=== PATIENT | male | born 1955 | race Caucasian/White ===

== ENCOUNTER 2019-03-12 05:40 | Inpatient (IN) | payer BC ==
[~2019-03-12] VITALS: Ht 182.9 cm; Wt 104.3 kg
[2019-03-12] MEDS ORDERED: ALVIMOPAN 12 MG CAPSULE PO ONE (06:00)
[2019-03-12] MEDS ORDERED: cefOXitin SODIUM 2 GM in D5W 100 ML IV ONE (07:30)
[2019-03-12] MEDS ORDERED: BUPIVACAINE LIPOSOME/PF 266 MG/20 ML VIAL INFIL ONE (07:32)
[2019-03-12] MEDS ORDERED: LOVA20TA2 PO (07:37)
[2019-03-12] MEDS ORDERED: NOR10 PO (07:37)
[2019-03-12] MEDS ORDERED: LR 1,000 ML IV SCH (08:43)
[2019-03-12] MEDS ORDERED: HYDROmorphone 2 MG/ML VIAL IVP PRN (08:45)
[2019-03-12] MEDS ORDERED: HYDROmorphone 1 MG INJ. 1 MG/ML AMPUL IVP PRN ×3 (08:45→10:30)
[2019-03-12] MEDS ORDERED: METOCLOPRAMIDE HCL 10 MG/2 ML VIAL IVP PRN (08:45)
[2019-03-12] MEDS ORDERED: ONDANSETRON HCL 4 MG/2 ML VIAL IVP PRN (10:30)
[2019-03-12] MEDS ORDERED: ACETAMINOPHEN 325 MG TABLET PO PRN (10:30)
[2019-03-12] MEDS ORDERED: HYDROcodone/ACETAMIN 5-325 MG TAB (NORCO/ VICODIN) PO PRN (10:30)
[2019-03-12 10:51] LABS: HEMATOCRIT 42.9 % (36-54); HEMOGLOBIN 14.8 g/dL (14.0-18.0)
[2019-03-12] MEDS ORDERED: HYDROmorphone 1 MG INJ. 1 MG/ML AMPUL ONE ×3 (10:51→11:43)
[2019-03-12 11:01] LABS: CALCIUM 8.1 mg/dL (8.4-11.0); CREATININE 1.37 mg/dL (0.55-1.30); POTASSIUM 3.8 mmol/L (3.5-5.1)
--- NOTE | 2019-03-12 11:45 | NUR ---
ADMISSION: The patient, WILLY GOODWIN, 64 y/o, M admitted by TOOÑ DURBIN MD, was given written information regarding hospital policies, unit procedures and contact persons.
--- NOTE | 2019-03-12 11:50 | NUR ---
OPENING NOTE patient is resting in bed, alert and oriented, abdominal binder on, darling in place, on 3L nasal cannula, educated surgical product sales consultant light system and plan of care, patient verbalized understanding, no signs of distress at this time, IV fluids running, fall/safety precautions in place.
[2019-03-12 12:10] VITALS: BP_SYST 120
[2019-03-12] MEDS: D5/0.45 NS 1,000 ML IV SCH (12:10)
[2019-03-12] MEDS: HYDROcodone/ACETAMIN 5-325 MG TAB (NORCO/ VICODIN) PO PRN ×3 (12:21→21:52)
--- NOTE | 2019-03-12 13:17 | NUR ---
CONSULTATION PAGED/CALLED Reason for Consultation: MEDICAL MANAGEMENT POST-OP Person Who was Notified: DAFNE Consulting Physician: Dissolver Operator Specialty: Ordering Physician:
--- NOTE | 2019-03-12 13:33 | NUR ---
rounds patient is resting in bed, patient stated pain has improved, no other needs at this time, IV fluids running, fall/safety precautions in place, no signs of distress at this time.
--- NOTE | 2019-03-12 15:15 | NUR ---
rounds patient resting in bed, family in the room, no signs of distress at this time, IV fluids running, no needs addressed at this time, fall/safety precautions in place.
[2019-03-12 16:45] VITALS: BP_SYST 115
--- NOTE | 2019-03-12 16:55 | NUR ---
prn pain medication patient resting in bed, educated on medication use and side effects, patient verbalized understanding, IV fluids running, no needs addressed at this time, fall/safety precautions in place.
--- NOTE | 2019-03-12 19:11 | NUR ---
closing note patient resting in bed, no signs of distress at this time, IV fluids running, no needs addressed at this time, fall/safety precautions in place, will endorse report to noc shift nurse to continue with care, patient can only have sips of water and ice chips, darling in place, abdominal binder on.
--- NOTE | 2019-03-12 19:15 | NUR ---
Late entry due to patient care; Patient was resting comfortably in bed. Patient's bed is in the lowest position with the bed alarm is activated. Patient has an abd dressing that is dry and intact and shows no signs of drainage or bleeding. Patient has active bowel sounds. Patient also has an abd binder on. Patient is on oxygen at 3L/min per NC, O2 saturation is 95%. Patient has a darling catheter to gravity drainage noted with clear yellowish urine. Patient was instructed to use IS 10x/hr while awake. Patient verbalized understanding and patient usage of IS was 1500ml. Patient has been instructed on nothing by mouth but can have ice chips and sips of water with medications. Patient has verbalized understanding. Patient has IV fluids D51/2NS at 100ml/hr in Right hand. IV site is intact with no signs of infiltration present. Fall and safety precautions are in place. Call light is with patient. No C/O pain or discomfort at this time.
[2019-03-12 20:00] VITALS: BP_SYST 121
[2019-03-12] MEDS: cefOXitin SODIUM 2 GM in D5W 100 ML IV SCH (21:49)
[2019-03-12] MEDS: ALVIMOPAN 12 MG CAPSULE PO SCH (21:50)
--- NOTE | 2019-03-12 21:52 | NUR ---
Patient complained of 6/10 incisional abd pain. Dressing remains dry and intact with abd binder in place. [place] 5/325mg 2 tablets given PO. Fall and safety precautions are in place. Call light is with patient and bed alarm is on. Patient was instructed to call for assistance as needed and patient verbalized understanding.
[2019-03-12] MEDS: FAMOTIDINE PF 20 MG/2 ML VIAL IVP SCH (21:53)
--- NOTE | 2019-03-13 | NUR ---
Pt is resting quietly in bed. Abdominal dressing dry and intact with abdominal binder in place. IVF is infusing well in RH. Call light is with pt and bed alarm is on.
[2019-03-13] MEDS: D5/0.45 NS 1,000 ML IV SCH ×3 (00:36→23:44)
[2019-03-13 00:56] VITALS: BP_SYST 114
--- NOTE | 2019-03-13 02:00 | NUR ---
Patient is sleeping with no s/s of distress. IV fluid is infusing well in . Fall and safety precautions are in place. Patient has call light, patient's bed is in the lowest and locked position. Bed alarm is on.
--- NOTE | 2019-03-13 04:00 | NUR ---
Patient is sleeping comfortably in bed. IV fluid is infusing well in RH. Fall and safety precautions are in place. Call light is with pt and bed alarm is on.
[2019-03-13] MEDS: HYDROcodone/ACETAMIN 5-325 MG TAB (NORCO/ VICODIN) PO PRN ×5 (05:09→21:07)
[2019-03-13 06:30] LABS: BASOPHILS % (AUTO) 0.4 % (0.0-2.0); EOSINOPHILS # (AUTO) 0.2 K/uL (0.0-0.4); EOSINOPHILS % (AUTO) 1.5 % (0.0-4.0); HEMATOCRIT 39.1 % (36-54); HEMOGLOBIN 13.3 g/dL (14.0-18.0); LYMPHOCYTES # (AUTO) 1.6 K/uL (1.0-5.5); LYMPHOCYTES % (AUTO) 16.1 % (20.5-51.5); MEAN CORPUSCULAR HEMOGLOBIN 32 pg (27-31); MEAN CORPUSCULAR HGB CONC 34 % (32-36); MEAN CORPUSCULAR VOLUME 95 fL (79.0-98.0); MONOCYTES # (AUTO) 1.3 K/uL (0.0-1.0); MONOCYTES % (AUTO) 13.1 % (1.7-9.3); NEUTROPHILS # (AUTO) 7.1 K/uL (1.8-7.7); NEUTROPHILS % (AUTO) 68.9 % (40.0-70.0); PLATELET COUNT (AUTO) 203 K/uL (130-430); RED BLOOD CELL COUNT(AUTO) 4.13 MIL/uL (4.2-6.2); RED CELL DISTRIBUTION WIDTH 13.1 % (9.0-15.0); WHITE BLOOD COUNT (AUTO) 10.2 K/uL (4.8-10.8)
[2019-03-13 06:34] LABS: ALANINE AMINOTRANSFERASE 23 U/L (12-78); ALBUMIN 3.2 g/dL (3.4-4.8); ASPARTATE AMINOTRANSFERASE 20 U/L (10-37); CALCIUM 8.1 mg/dL (8.4-11.0); CHLORIDE 101 mmol/L (98-107); CREATININE 1.19 mg/dL (0.55-1.30); GLUCOSE 102 mg/dL (70-99); POTASSIUM 3.5 mmol/L (3.5-5.1); SODIUM SERUM 135 mmol/L (136-145); TOTAL BILIRUBIN 0.7 mg/dL (0.0-1.0); UREA NITROGEN, BLOOD 8 mg/dL (8-21)
[2019-03-13 07:01] LABS: ANION GAP < 3 (5-15); GFR AFRICAN AMERICAN 80 mL/min (>90)
--- NOTE | 2019-03-13 07:52 | NUR ---
Initial notes: Patient sleeping. Stable. I.V. access patent. Call light within reach. Safety measures in placed. Report received from bedside.
[2019-03-13 07:55] VITALS: BP_SYST 123
[2019-03-13] MEDS: cefOXitin SODIUM 2 GM in D5W 100 ML IV SCH (08:18)
[2019-03-13] MEDS: ALVIMOPAN 12 MG CAPSULE PO SCH ×2 (08:23→20:38)
[2019-03-13] MEDS: FAMOTIDINE PF 20 MG/2 ML VIAL IVP SCH ×2 (08:24→20:41)
[2019-03-13] MEDS: ENOXAPARIN SODIUM 30 MG/0.3 ML SYRINGE SUBCUT SCH (08:25)
--- NOTE | 2019-03-13 09:27 | NUR ---
rounds: Patient resting on bed. No distress noted.
--- NOTE | 2019-03-13 09:53 | NUR ---
Nutrition Update Bogdan Scale 17 noted. Pt admitted for other specified diseases of intestine. Diet: NPO BMI: 31.2 kg/m2 RD to follow per nutrition care standards.
[2019-03-13] MEDS ORDERED: NS IRRIG SOLN 1000 ML IR ONE (10:30)
[2019-03-13] MEDS ORDERED: ROCURONIUM BROMIDE 10 MG/ML (ZEMURON) ONE (10:30)
[2019-03-13] MEDS ORDERED: fentaNYL CITRATE/PF 100 MCG/2 ML AMP ONE (10:30)
[2019-03-13] MEDS ORDERED: MIDAZOLAM HCL 5 MG/ML VIAL (VERSED) IV ONE (10:30)
[2019-03-13] MEDS ORDERED: LR 1,000 ML IV.SOLN IV ONE (10:30)
[2019-03-13] MEDS ORDERED: NEOSTIGMINE METHYLSULFATE 1 MG/ML, 10 ML VIAL ONE (10:30)
[2019-03-13] MEDS ORDERED: PROPOFOL 200MG/ 20ML VIAL (DIPRIVAN) IV ONE (10:30)
[2019-03-13] MEDS ORDERED: NS 1000 ML IV.SOLN IV ONE (10:30)
[2019-03-13] MEDS ORDERED: SEVOFLURANE 15 MIN GAS INH ONE (10:30)
[2019-03-13] MEDS ORDERED: SUCCINYLCHOLINE CHLORIDE 20 MG/ML(QUELICIN) ONE (10:30)
[2019-03-13] MEDS ORDERED: GLYCOPYRROLATE 0.2 MG/ML VIAL ONE (10:30)
[2019-03-13] MEDS ORDERED: NS 100 ML BAG ONE (10:30)
[2019-03-13] MEDS ORDERED: fentaNYL CITRATE 250 MCG/5 ML AMP ONE (10:30)
[2019-03-13] MEDS ORDERED: IPRATROPIUM BROM 0.5 MG/2.5 ML VIAL.NEB (ATROVENT) INH PRN (11:30)
[2019-03-13] MEDS: IPRATROPIUM BROM 0.5 MG/2.5 ML VIAL.NEB (ATROVENT) INH SCH ×4 (11:30→23:00)
[2019-03-13] MEDS ORDERED: ALBUTEROL SULFATE 0.083% 2.5 MG/3 ML VIAL.NEB INH PRN (11:30)
[2019-03-13] MEDS: ALBUTEROL SULFATE 0.083% 2.5 MG/3 ML VIAL.NEB INH SCH ×4 (11:30→23:00)
[2019-03-13] MEDS ORDERED: amLODIPine BESYLATE 10 MG TABLET PO ONE (11:45)
--- NOTE | 2019-03-13 12:00 | NUR ---
rounds: Patient sitting on the chair. no distress noted. at bedside.
[2019-03-13 12:26] VITALS: BP_SYST 127
--- NOTE | 2019-03-13 13:00 | NUR ---
Ambulate: Patient ambulates at the hallway with walker and assist. Tolerated well.
--- NOTE | 2019-03-13 14:04 | NUR ---
D/C FC: Removed darling cath as MD order. Inform patient to call us if he void.
--- NOTE | 2019-03-13 16:00 | NUR ---
voided: Patient voided 150cc of clear urine s/p darling cath removal.
[2019-03-13 16:53] VITALS: BP_SYST 130
[2019-03-13] MEDS ORDERED: ATORVASTATIN 10 MG TABLET PO SCH (18:00)
[2019-03-13] MEDS: METOCLOPRAMIDE HCL 10 MG/2 ML VIAL IVP SCH (18:48)
--- NOTE | 2019-03-13 18:55 | NUR ---
Closing notes: Patient resting on bed. Stable. Needs attended. Abd incision, dry clean and intact with abd binder. Call light within reach. Safety measures in placed. Report will be given to mini shifter.
--- NOTE | 2019-03-13 19:15 | NUR ---
Opening notes: Patient was resting comfortably in bed. Patient's bed is in the lowest position with the bed alarm activated. Patient has an abd dressing that is dry and intact and shows no signs of drainage or bleeding. Patient has active bowel sounds. Patient also has an abd binder on. Patient was instructed to use IS 10x/hr while awake. Patient verbalized understanding and patient usage of IS was 1500ml. Patient is on clear liquid diet. Patient has verbalized understanding. Patient has IV fluids D51/2NS at 100ml/hr in Right hand. IV site is intact with no signs of infiltration present. Fall and safety precautions are in place. Call light is with patient. No C/O pain or discomfort at this time.
[2019-03-13 20:00] VITALS: BP_SYST 125
--- NOTE | 2019-03-13 20:45 | NUR ---
Patient stated that he ambulated in the hallway and also stated that he had a bowel movement.
--- NOTE | 2019-03-13 21:07 | NUR ---
Patient C/o 6/10 pain in lower abd region. Patient was given [place] 5/325 2 tablets PO per his request. Abd dressing is intact with no bleeding noted. Fall and safety precautions are in place.
--- NOTE | 2019-03-13 23:50 | NUR ---
Patient ambulated to bathroom and back to bed with steady gait. IV fluid is infusing well in RH. Fall and safety precautions in place.
[2019-03-14 00:27] VITALS: BP_SYST 130
[2019-03-14] MEDS: ALBUTEROL SULFATE 0.083% 2.5 MG/3 ML VIAL.NEB INH SCH ×3 (03:00→11:00)
[2019-03-14] MEDS: IPRATROPIUM BROM 0.5 MG/2.5 ML VIAL.NEB (ATROVENT) INH SCH ×3 (03:00→11:00)
--- NOTE | 2019-03-14 04:20 | NUR ---
Patient is sleeping with no s/s of distress. IV fluid is infusing well in . Fall and safety precautions are in place. Patient has call light, patient's bed is in the lowest and locked position.
[2019-03-14] MEDS: METOCLOPRAMIDE HCL 10 MG/2 ML VIAL IVP SCH ×3 (05:42→11:44)
--- NOTE | 2019-03-14 06:39 | NUR ---
Closing Notes: Pt is resting quietly in bed. No c/o pain or discomfort at this time. All pt's needs were attended to. IVF is infusing well in RH. Call light is with pt and bed alarm is on. Abd dressing remains dry and intact with no bleeding noted. Abdominal binder is in place. Will endorse to day shift nurse.
--- NOTE | 2019-03-14 07:30 | NUR ---
OPENING NOTE patient is resting in bed, alert and oriented, abdominal binder on, patient put on 3L nasal cannula, educated acquisition professional light system and plan of care, patient verbalized understanding, no signs of distress at this time, IV fluids running, fall/safety precautions in place.
[2019-03-14 08:00] VITALS: BP_SYST 144
[2019-03-14] MEDS: ALVIMOPAN 12 MG CAPSULE PO SCH (08:28)
[2019-03-14] MEDS: ENOXAPARIN SODIUM 30 MG/0.3 ML SYRINGE SUBCUT SCH (08:31)
[2019-03-14] MEDS: FAMOTIDINE PF 20 MG/2 ML VIAL IVP SCH (08:47)
[2019-03-14] MEDS ORDERED: amLODIPine BESYLATE 10 MG TABLET PO SCH (09:00)
--- NOTE | 2019-03-14 09:35 | NUR ---
changed D5 1/2NS bag patient resting in bed, fluid bag changed, no other needs at this time, patient still on 3L nasal cannula, fall/safety precautions in place.
[2019-03-14] MEDS: D5/0.45 NS 1,000 ML IV SCH (11:44)
--- NOTE | 2019-03-14 11:44 | NUR ---
scheduled reglan patient is sitting on chair, visitor at the bedside, educated on medication use and side effects, patient verbalized understanding, no other needs at this time, fall/safety precautions in place.
[2019-03-14 12:21] VITALS: BP_SYST 140
--- NOTE | 2019-03-14 13:20 | NUR ---
Dr Mckeon in room came to see patient, okayed for being to go home today. Continue with liquid diet today and can go regular tomorrow AM. Follow up with Dr Mckeon in one week.
[2019-03-14 13:30] VITALS: BP_SYST 140
== END 2019-03-14 14:25 | disposition home or self-care (01) | DRG 331 ==
LOC: SMU 05:40 → EDSTATUS 07:30 → SMU 11:45
PROVIDERS: ADMIT Colon & Rectal Surgery; ATTEND Colon & Rectal Surgery
PROC: 0DBN0ZZ Excision of Sigmoid Colon, Open Approach (ICD-10-PCS; 2019-03-12)
PROC: 0DBP0ZZ Excision of Rectum, Open Approach (ICD-10-PCS; 2019-03-12)
PROC: 0DJD8ZZ Inspection of Lower Intestinal Tract, Via Natural or Artificial Opening Endoscopic (ICD-10-PCS; principal; 2019-03-12 07:30)
DX: K63.9 Disease of intestine, unspecified (principal); J45.909 Unspecified asthma, uncomplicated; I10 Essential (primary) hypertension; E78.5 Hyperlipidemia, unspecified; Z79.899 Other long term (current) drug therapy
CPT/HCPCS: 36415; 80048; 80053; 85018-TC; 85025; 86886; 86900; 86901; 87081; 88307; C1727; C9290; J0330; J0694; J1170; J1650; J2250; J2704; J2710; J2765; J3010; J3490; J7030; J7060; J7120; J7613